=== PATIENT | female | born 1940 | race Caucasian/White ===

== ENCOUNTER → 2016-09-21 | Outpatient (CLI) | payer OTHER ==
--- NOTE | 2016-09-21 11:51 | DX ---
PA and Lateral Chest September 21, 2016 Indication: Crackles left base on clinical exam. Cough for two months. Comparison: Portable chest dated July 03, 2016, two-view chest dated September 01, 2015, and CT ch est dated October 06, 2015. Findings: No acute superimposed edema, airspace consolidation, or effusion. Diffuse peribronchial thi ckening and subpleural intralobular septal thickening in the lower lung zones, worse left than right, have not significantly changed since prior exams. Heart size remains within normal limits. Kyphosis, unchanged. Impression: 1. No acute process. Specifically, no pneumonia or failure. 2. Chronic airways disease and minimal subpleural interstitial lung disease, worse at the left base.
== END ==
LOC: FIMAGING 10:59
PROVIDERS: ATTEND Internal Medicine
DX: J44.9 Chronic obstructive pulmonary disease, unspecified (principal); J84.9 Interstitial pulmonary disease, unspecified

== ENCOUNTER → 2016-10-04 | Outpatient (CLI) | payer OTHER | LOC: BHFA 09:15 | PROVIDERS: ATTEND Internal Medicine Cardiovascular Disease | DX: R06.00 Dyspnea, unspecified (principal) ==

== ENCOUNTER → 2017-01-24 | Outpatient (CLI) | payer OTHER | LOC: FIMAGING 09:58 | PROVIDERS: ATTEND Internal Medicine | DX: Z12.31 Encounter for screening mammogram for malignant neoplasm of breast (principal); Z85.3 Personal history of malignant neoplasm of breast | CPT/HCPCS: G0202 ==

== ENCOUNTER 2017-11-12 10:08 | Inpatient (IN) | payer OTHER ==
--- NOTE | 2017-11-12 11:35 | EDPHY ---
H & P Stated Complaint: Increased left wrist/hand pain, since 11/09/17, seen at - Personal History Current Tetanus Diphtheria and Acellular Pertussis (TDAP): Yes - Medical/Surgical History Hx Asthma: Yes Hx Chronic Respiratory Disease: No Hx Diabetes: Yes Hx Cardiac Disease: Yes Hx Renal Disease: No Hx Cirrhosis: No Hx Alcoholism: No Hx HIV/AIDS: No Hx Splenectomy or Spleen Trauma: No Other PMH: leaky valve, hypothyrodism, pre diabetic, high cholesterol, severe asthma. COPD. - Social History Smoking Status: Never smoked Time Seen by Provider: 11/12/17 11:22 HPI/ROS: CHIEF COMPLAINT: Left wrist pain HISTORY OF PRESENT ILLNESS: 77-year-old left hand dominant female arrives via private vehicle complaining of 3 days of progressive left wrist pain, erythema. Denies history of trauma. Awoke 3 days ago with mild left wrist pain which became progressively worse. She was seen at an urgent care had negative x-rays told this may be secondary to acute gouty arthritis and discharged with a wrist splint. No history of gouty arthritis. She notes that the area has become progressively more painful, more with images, she has decreased range of motion secondary to pain. She also notes subjective fever and flu-like symptoms. She denies: Lymphangitic streaking, nausea or vomiting. She return from a trip to [place] 2 weeks ago. PRIMARY CARE PROVIDER: Dr. Alana eng REVIEW OF SYSTEMS: A ten point review of systems was performed and is negative with the exception of the items mentioned in the HPI PAST MEDICAL & SURGICAL HISTORY: Pulmonary hypertension, COPD, 6 L home oxygen , hypothyroid, pre diabetes, hyperlipidemia SOCIAL HISTORY:Nonsmoker never smoked PHYSICAL EXAM (Prior to examination, patient consented to physical exam, hands were washed and my usual and customary physical exam procedures followed) 1) GENERAL: Well-developed, well-nourished, alert and oriented. Appears to be in no acute distress. 2) HEAD: Normocephalic, atraumatic 3) HEENT: Pupils equal, round, reactive to light bilaterally. Sclera anicteric. 4) NECK: Full range of motion, no meningeal signs. 5) LUNGS: Clear auscultation bilaterally, no wheezes, no rhonchi, no retractions. 6) HEART: Regular rate and rhythm, no murmur, no heave, no gallop. 7) ABDOMEN: No guarding, no rebound, no focal tenderness, negative McBurney's, 8) MUSCULOSKELETAL: Left upper extremity: Edema, erythema, induration, tender to palpation left dorsal wrist. Significant pain with passive range of motion. Unable to assess radial ulnar median nerve function distally secondary to pain. No lymphangitic streaking. No axillary adenopathy. 9) BACK: No CVA tenderness, no midline vertebral tenderness, no fluctuance, no step-off, no obvious trauma, no visual or palpable abnormality. 10) SKIN: No rash, no petechiae. 11) Psychiatric: Patient is oriented X 3, there is no agitation. DIFFERENTIAL DIAGNOSIS: In no particular order including but not limited to septic arthritis, acute gouty arthritis, osteoarthritis, cellulitis (Jose Daniel,Natalya Dangelo) Constitutional: Initial Vital Signs Temperature (C) 36.9 C 11/12/17 10:14 Heart Rate 99 11/12/17 10:14 Respiratory Rate 16 11/12/17 10:14 Blood Pressure 117/63 11/12/17 10:14 O2 Sat (%) 95 11/12/17 10:14 O2 Delivery Mode Nasal Cannula O2 (L/minute) 5 Allergies/Adverse Reactions: No Known Allergies Allergy (Unverified 07/03/16 22:21) Home Medications: Medication Instructions Recorded Levothyroxine [Synthroid 112 mcg 112 mcg PO DAILY06 07/03/16 (*)] Advair 230/21 1 puffs IH DAILY 11/12/17 Alendronate Sodium [Fosamax 70 MG 70 mg PO FR@0700 11/12/17 (*)] Aspirin [Aspirin 81mg (*)] 81 mg PO HS 11/12/17 Fluticasone Nasal [Flonase Nasal 1 sprays NASAL QID PRN 11/12/17 Marlin (RX)] Fluticasone/Vilanterol [Breo 1 each IH DAILY 11/12/17 Ellipta 100-25 Mcg INH] Herbals/Supplements -Info Only 1 ea PO DAILY 11/12/17 Selexipag [Uptravi] 800 mcg PO BID 11/12/17 Selexipag [Uptravi] 800 mcg PO BID 11/12/17 Simvastatin [Zocor] 40 mg PO DAILY18 11/12/17 Tiotropium [place] [Spiriva 1 puffs IH DAILY 11/12/17 Respimat] metFORMIN HCL [Glucophage 500 mg 500 mg PO BIDMEAL 11/12/17 (*)] Medical Decision Making - Diagnostics Imaging Results: Images reviewed by myself (Natalya Sky) ED Course/Re-evaluation: 11:35 a.m.: Care of patient under supervision of secondary supervising physician Dr Shannon also evaluated the patient. Patient does not meet sepsis screening criteria. Of concern in this patient at this time is possibility of septic arthritis with overlying erythema and induration. Discussed possibility of crystal induced arthritis. Given the overlying erythema induration neither I or Dr Shnanon think that diagnostic arthrocentesis is appropriate at this time. 1:40 p.m.: Re-evaluation. Recommended admission for further evaluation, notably she notes it progressive worsening of symptoms and decreased range of motion concern over possible septic arthritis of the wrist. Patient is agreeable with admission. 1:53 p.m.: Consultation with hospitalist Fabiana, admit to Dr. Rodríguez 2:08 p.m.: Consultation with Dr. Tonio Rosa who will consult for hand surgery, he recommends MRI which will be ordered. (Natalya Sky) I have evaluated and participated in the management of this patient. My co- signature indicates that I have reviewed this chart and that I agree with the findings and the plan of care as documented. My personal history and physical findings include: 77-year-old female with history of hypertension. She presents with left wrist pain. On examination she has swelling and tenderness over the dorsum of her left wrist with warmth and erythema. There is significant tenderness at the base of her left thumb. She is able to flex and extend all digits on the left. She is also able to flex, extend, matti, and invert her wrist, lb at with pain. Sensation is intact to light touch over her left upper extremity. 2+ radial pulse on the left. Lungs are clear and heart is regular rate and rhythm. She does not appear ill or toxic in general but I am concerned about a septic joint. Other diagnostic possibilities include gout , pseudogout, necrotizing fasciitis, and cellulitis. She has had recent travel in [place] but denies any bites or stings and I do not see any evidence of such. Hand surgery has been consulted and an MRI is being obtained. Joint aspiration will be performed by the hand surgeon. Vancomycin was given in the emergency department. (Dionne Shannon) - Data Points Laboratory Results: Laboratory Results 11/12/17 11:15 11/13/17 00:45 Microbiology Results: MICROBIOLOGY 11/12/17 19:33 Wrist - Aspirate Gram Stain - Final 11/12/17 19:33 Wrist - Aspirate Anaerobic Culture - Preliminary 11/12/17 12:40 Blood Blood Culture - Preliminary 11/12/17 11:15 Blood Blood Culture - Preliminary Medications Given: Acetaminophen (Tylenol) 650 mg PO Q4HRS PRN PRN Reason: Pain, Mild/Fever, Can Take PO Stop: 05/11/18 15:53 Last Admin: 11/14/17 08:49 Dose: 650 mg Aspirin (Aspirin) 81 mg PO HS NIDA Stop: 05/12/18 20:59 Last Admin: 11/13/17 21:15 Dose: 81 mg Levothyroxine Sodium (Synthroid) 112 mcg PO DAILY06 NIDA Stop: 05/12/18 05:59 Last Admin: 11/14/17 05:02 Dose: 112 mcg Miscellaneous Medication (Fluticasone/Vilanterol [Breo Ellipta 100-25 Mcg Inh]) 1 each IH DAILY NIDA Stop: 05/12/18 08:59 Last Admin: 11/14/17 09:36 Dose: 1 inh Miscellaneous Medication (Selexipag [Uptravi]) 800 mcg PO BID NIDA Stop: 05/11/18 22:44 Last Admin: 11/14/17 08:50 Dose: 800 mcg Miscellaneous Medication (Selexipag [Uptravi]) 800 mcg PO BID NIDA Stop: 05/11/18 22:44 Last Admin: 11/14/17 08:51 Dose: 800 mcg Miscellaneous Medication (Tiotropium [place] [Spiriva Respimat]) 1 puffs IH DAILY NIDA Stop: 05/12/18 08:59 Last Admin: 11/14/17 09:36 Dose: 1 inh Miscellaneous Medication (Simvastatin [Zocor]) 40 mg PO DAILY18 NIDA Stop: 05/11/18 22:44 Last Admin: 11/13/17 18:30 Dose: 40 mg Discontinued Medications Colchicine (Colchicine) 1.2 mg PO ONCE ONE Stop: 11/13/17 00:31 Last Admin: 11/13/17 00:44 Dose: 1.2 mg Colchicine (Colchicine) 0.6 mg PO DAILY NIDA Stop: 05/12/18 01:59 Last Admin: 11/13/17 10:15 Dose: 0.6 mg Fentanyl (Sublimaze) 50 mcg IVP EDNOW ONE Stop: 11/12/17 11:50 Last Admin: 11/12/17 11:59 Dose: 50 mcg Vancomycin/Sodium Chloride (Vancomycin 1 Gm (Premix)) 250 mls @ 250 mls/hr IV EDNOW ONE PRN Reason: Protocol Stop: 11/12/17 16:59 Last Admin: 11/12/17 15:45 Dose: 250 mls Vancomycin/Sodium Chloride (Vancomycin 1 Gm (Premix)) 250 mls @ 250 mls/hr IV Q12H NIDA Stop: 12/13/17 03:59 Last Admin: 11/14/17 05:02 Dose: 250 mls Ketorolac Tromethamine (Toradol) 15 mg IVP EDNOW ONE Stop: 11/12/17 13:48 Last Admin: 11/12/17 14:04 Dose: 15 mg Lidocaine HCl (Xylocaine-Mpf 2% Vial) 3 ml ID ONCE ONE Stop: 11/12/17 18:31 Last Admin: 11/12/17 18:52 Dose: 3 ml Potassium Chloride (Klor-Con) 20 meq PO ONCE ONE Stop: 11/12/17 16:45 Last Admin: 11/12/17 17:16 Dose: 20 meq Departure - Departure Disposition: [facility] Clinical Impression: Left wrist cellulitis, Possible septic arthritis left wrist Condition: Fair
[2017-11-12 11:48] LABS: PLATELET COUNT 389 10^3/uL (150-400)
[2017-11-12] MEDS ORDERED: fentaNYL 100 MCG/2 ML INJ IVP ONE (11:49)
[2017-11-12] MEDS ORDERED: VANCOMYCIN HCL/NORMAL SALINE 250 ML IV ONE ×2 (13:45→16:00)
[2017-11-12] MEDS ORDERED: KETOROLAC 15 MG/1 ML SDV IVP ONE (13:47)
[2017-11-12] MEDS ORDERED: ONDANSETRON 4 MG/2 ML VIAL IVP PRN (15:54)
[2017-11-12] MEDS ORDERED: HYDROmorphone HCL/NS 0.5 MG/ML SYR IVP PRN (15:54)
[2017-11-12] MEDS ORDERED: HYDROCODONE/APAP 5/325 TAB PO PRN (15:54)
[2017-11-12] MEDS ORDERED: ALBUTEROL 3 ML DEYVIAL IH PRN (15:54)
[2017-11-12] MEDS ORDERED: ZOLPIDEM TARTRATE 5 MG TAB PO PRN (15:54)
[2017-11-12] MEDS ORDERED: ONDANSETRON DISINTEGRATING 4 MG TAB PO PRN (15:54)
[2017-11-12] MEDS ORDERED: NS W/ 20 KCl/L 1,000 ML IV SCH (16:00)
--- NOTE | 2017-11-12 16:39 | GHP ---
[f rep st] HISTORY AND PHYSICAL DATE OF ADMISSION: 11/12/2017 CHIEF COMPLAINT: Left wrist swelling and tenderness and pain. HISTORY OF PRESENT ILLNESS: This is a 77-year-old female, who notes a 2-3 day history of increasing pain, swelling and tenderness of her left wrist. It is especially tender with extension of her finge rs and movement of her wrist. She has applied ice to it and cannot relieve the pain. The symptoms a nd the pain came on suddenly in the last 2-3 days. It has been increasingly swollen and tender. It is not accompanied by having a fever and she denies any trauma to the wrist recently. She did recent ly travel for 6 weeks in [place] visiting [place], [place] and 1 other country. She returned from the trip healthy and well. She has been back in the country for approximately 2 weeks and had this sudden onset of this pain. Of note, the patient is currently under treatment for pulmonary hypertension through [facility] and has been placed on a new medication for the last 2-1/2 months. The dose of the medicati on has been up titrated and she is now at the maximum dose. She notes that the medication causes a f eeling of aching all over, and myalgia when she takes it. Her relief for these symptoms is to lie in a warm tub of water with jets and then she reports she is able to go to sleep. She has carried a di agnosis for many years of chronic obstructive pulmonary disease and was cared for through [facility]. Her last visit in 2016 indicates she has normal pulmonary function tests with a decre ased DLCO. Pulmonary hypertension was noted on echo at that time. She also has sleep apnea syndrome , uses a CPAP mask and has chronic hypoxic respiratory failure requiring 6 L of oxygen at maintenance levels. She uses oxygen 24/7 and additionally, she has a chronic cough which has not changed in its character in the last 2-3 months. The cough is characterized by white productive sputum in the morn ing and in the evening. Through [facility], she is reported to have environmental allergies. N o medical allergies and a problem of chronic bronchitis although she has not been treated with an ant ibiotic and in particular not been treated with Levaquin in the last several months. PAST MEDICAL HISTORY: 1. Borderline diabetic for which she takes metformin. She does not know her last hemoglobin A1c. 2. Pulmonary hypertension as noted above in the HPI. 3. Normal side reactions to her new pulmonary medicine causing myalgias and arthralgia. She denies currently asthma although she previously carried a diagnosis of asthma. She reports that [employer] wish told her she does not have asthma. I assume from this that her pulmonary functions there indica tessa she did not have a positive bronchodilator response. She denies a prior history of coronary dise ase, renal disease. PAST SURGICAL HISTORY: She had her nasal septum repaired, tonsillectomy and bone spurs removed from 1 of her heels. ALLERGIES: No known allergies. MEDICATIONS: Noted in the EMR. These include Flonase nasal spray, aspirin 81 mg a day. Fosamax, me tformin 500 mg twice daily, Zocor, Synthroid 120, 12 mcg, Breo Ellipta pulmonary inhaler 100, 25 mcg and albuterol. Other medications, Uptravi, and I do not know the dosages at this time or frequency o f dosing. The EMR medications will be reconciled when available. FAMILY HISTORY: Positive for an arrhythmia, diabetes mellitus type 2, hypertension, throat cancer. SOCIAL HISTORY: She has 3 sisters. She has been single all her life and she has no children. 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 Tobacco: She has never s moked and alcohol she very rarely consumes alcohol. PHYSICAL EXAM: GENERAL: Is a pleasant, alert female, who appears uncomfortable but in no distress. VITAL SIGNS: She is afebrile. Her oxygen saturation is 94% on 5-6 L. Her blood pressure is very sl ightly elevated 1 count but otherwise normal. HEENT: Normal. Throat, tongue and buccal mucosa are without lesions. NECK: Supple without signs of meningismus. LUNGS: Diminished breath sounds overa ll with a few scattered crackles in the bases but no or expiratory or inspiratory wheezing. HEART: Singular S1, S2 without a murmur or gallop. JVP is not elevated. ABDOMEN: Normoactive narciso wel sounds. No masses, tenderness, organomegaly. EXTREMITIES: Show significant swelling, warmth and redness over the dorsal aspect of the left wrist extending to the mid region of the hand on the metac arpals. Any movement of the fingers or wrist causes very significant pain for the lady. X-ray revea ls degenerative changes at the 1st MCP joint but otherwise shows no fracture or bony erosions. An MR I is pending. LABORATORY DATA: Shows a normal white count, with a low hemoglobin at 11 but normal red cell indices . Her potassium is slightly low at 3.3, but otherwise her electrolyte panel was normal with a normal calcium and normal uric acid. ASSESSMENT: 1. Acute arthritis, possible septic arthritis although she has no constitutional symptoms to corrobo rate this and also her white count is normal. She denies any recent constitutional symptoms although it is difficult to separate those symptoms from her chronic respiratory problem with chronic pulmona ry shortness of breath and a chronic productive cough. The cough has not changed in character and th us I do not think a possible lung infection is involved in this matter. It seems possible that Uptri va, the medication she is taking for pulmonary hypertension, may, in fact, cause problems of joint sw elling. It certainly has a side effect of causing myalgia and arthralgia but it is not listed as cau sing problems of genuine inflammatory arthritis. Dr. Rosa has been consulted and will review the ca se and see the patient following the MRI. I do not detect fluctuance, yet it may be possible with e MRI to detect an area for possible tap and culture. In the meantime, the patient has had 2 blood c ultures taken. 2. Chronic pulmonary hypertension. Will continue her medication and consult with Pulmonary rosie g issues of management of her chronic pulmonary hypertension and the use of this medication. We will continue her usual home medications along with her needed oxygen. 3. Her code status is full. 4. Deep venous thrombosis prophylaxis will be with early ambulation. She has no history of a deep v enous thrombosis or clotting disorder. Should she not be able to ambulate adequately within 24 hours then suggest Lovenox. The patient will be admitted to observation status. Time of the admission required 60 minutes. /[id number]/MODL
[2017-11-12] MEDS ORDERED: POTASSIUM CL 20 MEQ TAB PO ONE (16:44)
[2017-11-12] MEDS ORDERED: LIDOCAINE 2% 5 ML SDV ID ONE (18:30)
--- NOTE | 2017-11-12 19:59 | GCON ---
[f rep st] CONSULTATION ORTHOPEDIC CONSULTATION DATE OF CONSULTATION: 11/12/2017 DIAGNOSIS: Left septic wrist (suspected). HISTORY OF PRESENT ILLNESS: Patient is a 77-year-old woman who has had an approximately 3-day histor y of increasing pain in the left wrist. She has had difficulty moving the wrist and fingers. She pope s had more swelling over the last 24 hours. She has tried applying ice, without success. She had re cently traveled 6 weeks in [place], visiting multiple countries. She indicates that she returned from the trip without any infections. Medical problems include pulmonary hypertension, for which she has been on new medication for the last 2-1/2 months. She indicates the medicine that she takes for the pulmonary hypertension does cause generalized body aches and myalgias. This may have confused her i n regard to the wrist discomfort that she has been having. She indicates she has not had any signifi cant shortness of breath or other areas that are consistent with an infectious process. PAST MEDICAL HISTORY: Borderline diabetes, currently taking metformin. Pulmonary hypertension as st ated. PREVIOUS SURGICAL HISTORY: Nasal septal repair, tonsillectomy, bone spurs removed from her heels. ALLERGIES: No known allergies. PHYSICAL EXAMINATION: GENERAL: Patient is alert and oriented, cooperative with exam. CHEST: Clear to auscultation. ABDOMEN: Nontender. LEFT UPPER EXTREMITY: Reveals normal sensation. Is able to flex, extend, abduct, and adduct the fingers. Moderate swelling over the dorsum of the wrist with a ssociated erythema. She is very tender over the dorsal aspect of the wrist at the level of the scaph olunate interval. MRI is reviewed, which shows fluid within the left wrist, consistent with synovitis, possibly purulen t. No obvious significant erosive findings seen on MRI or plain films. ASSESSMENT: Left wrist swelling, likely secondary to purulent synovitis. TREATMENT: Left wrist was prepped. A needle was placed in the joint, and indeed purulent fluid was obtained. This was sent to the lab for aerobic and anaerobic cultures, cell counts, Gram stain, and crystallin studies. Because the patient had been n.p.o. most of the day, but just recently was allow ed to eat, we are going to await lab results and anticipate surgical debridement with irrigation and drainage early tomorrow morning. /[id number]/MODL
[2017-11-12] MEDS ORDERED: FLUTICASONE NASAL 120 SPRAYS/16 GM MDI EACHNARE PRN (21:37)
[2017-11-12] MEDS: SELEXIPAG 800 MCG PO SCH (22:41)
[2017-11-12] MEDS: Simvastatin [Zocor] 40 MG PO SCH (22:41)
[2017-11-12] MEDS: SELEXIPAG 200 MCG PO SCH (22:41)
[2017-11-13] MEDS ORDERED: COLCHICINE 0.6 MG CAP/TAB PO ONE (00:30)
[2017-11-13] MEDS: COLCHICINE 0.6 MG CAP/TAB PO SCH ×2 (01:49→10:15)
[2017-11-13] MEDS: LEVOTHYROXINE 112 MCG TAB PO SCH (04:36)
[2017-11-13] MEDS: VANCOMYCIN HCL/NORMAL SALINE 250 ML IV SCH ×2 (04:36→16:30)
[2017-11-13] MEDS: Fluticasone/Vilanterol [Breo Ellipta 100-25 Mcg Inh] IH SCH (08:11)
[2017-11-13] MEDS: Tiotropium Bromide [Spiriva Respimat] IH SCH (08:12)
[2017-11-13] MEDS: ACETAMINOPHEN 325 MG TAB PO PRN ×3 (10:16→19:04)
[2017-11-13] MEDS: SELEXIPAG 800 MCG PO SCH ×2 (10:17→21:15)
[2017-11-13] MEDS: SELEXIPAG 200 MCG PO SCH ×2 (10:18→21:15)
--- NOTE | 2017-11-13 11:22 | ASMTCMCOM ---
CM Note CM Note Notes: Patient admitted for L wrist pain. The wrist was aspirated and fluid has been sent to the lab. Per ortho note, she is to have I&D today. Patient is normally independent. No acute care therapies have been ordered, and I do not anticipate any discharge needs. If any arise, Case Management will assist. Date Signed: 11/13/2017 11:21 AM Electronically Signed By:Milly Mcclure RN
--- NOTE | 2017-11-13 12:34 | HOSPPROG ---
Hospitalist Progress Note Assessment/Plan: # acute left wrist arthritis- MRI it left hand(personally reviewed and interpreted) shows fluid collection and dorsal edema consistent with cellulitis Synovial aspirate with calcium pyrophosphate crystals- culture NGTD - continue colchicine - Dr. Rosa orthopedics following - follow cultures # left wrist cellulitis- continue empiric IV vancomycin # diabetes- blood sugars well controlled 76-96 - hold metformin - sliding scale insulin if needed # abnormal urinalysis- no distinct complaints at presentation- urine culture pending # chronic hypoxic respiratory failure-home requirement 6 L- 96% on 5 L -continue home meds # prophylaxis Lovenox # diet diabetic # disposition greater than 2 midnights as the patient requires IV antibiotics and monitoring for left wrist arthritis and cellulitis I have discussed the case with the RN-we will continue to hold metformin during this hospital stay Subjective: Pain of left wrist improved Objective: Vital Signs Temp Pulse Resp BP Pulse Ox 36.9 C 75 16 115/67 96 11/13/17 11:34 11/13/17 11:34 11/13/17 11:34 11/13/17 11:34 11/13/17 11:34 Microbiology 11/12/17 19:33 Gram Stain - Final Wrist - Aspirate Laboratory Results 11/13/17 00:45 11/12/17 11/13/17 11/14/17 05:59 05:59 05:59 Intake Total 1800 Output Total 600 Balance 1200 - Physical Exam Constitutional: appears nourished Eyes: anicteric sclera Ears, Nose, Mouth, Throat: moist mucous membranes Cardiovascular: regular rate and rhythym Respiratory: no respiratory distress, No expiratory wheeze Gastrointestinal: normoactive bowel sounds Genitourinary: no bladder fullness Skin: warm Musculoskeletal: other (Left wrist and hand wrapped), No asymmetric calves Neurologic: AAOx3 Psychiatric: interacting appropriately Lymph, Heme, Immunologic: no cervical LAD ICD10 Worksheet Patient Problems: Problems Problem Status Onset Arthritis of wrist, left Acute - ICD10 Problem Qualifiers (1) Arthritis of wrist, left
--- NOTE | 2017-11-13 16:58 | PDMN ---
Medical Necessity Medical necessity: Change to IP, as of 11/13/17, per MD; los >2 mn for ongoing management of L wrist arthritis & cellulitis, as well as abnormal urinalysis; admit for further monitoring/workup, IV abx & possible surgical intervention; hx diabetes, chronic hypoxic respiratory failure & pulmonary htn; per progress note & order 11/13/17
[2017-11-13] MEDS ORDERED: Simvastatin [Zocor] 40 MG PO SCH (18:00)
[2017-11-13] MEDS: Simvastatin [Zocor] 40 MG PO SCH (18:30)
--- NOTE | 2017-11-13 18:33 | SOAPPROG ---
SOAP Progress Note Assessment/Plan: Assessment: purulent synovitis left wrist. Cultures are negative at this time. Pseudogout crystals on microscopy Plan: recheck cultures. Continue vancomycin. Treat crystalline arthropathy with colchicine and possibly convert to indomethacin. 11/13/17 18:29 Subjective: Patient thinks pain is a little better Objective: Vital Signs Temp Pulse Resp BP Pulse Ox 37.1 C 78 16 109/63 95 11/13/17 16:00 11/13/17 16:00 11/13/17 16:00 11/13/17 16:00 11/13/17 16:00 Erythema still present but better. Still warm. less painful rom. Cultures negative at 18 hrs., gram stain negative. ICD10 Worksheet Patient Problems: Problems Problem Status Onset Arthritis of wrist, left Acute
[2017-11-13] MEDS: ASPIRIN 81 MG CHEWABLE TAB PO SCH (21:15)
[2017-11-14] MEDS: LEVOTHYROXINE 112 MCG TAB PO SCH (05:02)
[2017-11-14] MEDS: VANCOMYCIN HCL/NORMAL SALINE 250 ML IV SCH ×2 (05:02→18:00)
--- NOTE | 2017-11-14 08:08 | SOAPPROG ---
SOAP Progress Note Assessment/Plan: Assessment: purulent synovitis left wrist. Cultures are negative at this time (36 hs). Pseudogout crystals on microscopy. Plan: recheck cultures. Continue vancomycin. Treat crystalline arthropathy. will change colchicine to indomethacin. 11/13/17 18:29 11/14/17 08:05 Subjective: Less pain Objective: Vital Signs Temp Pulse Resp BP Pulse Ox 36.9 C 79 16 98/55 L 94 11/14/17 00:00 11/14/17 00:00 11/14/17 00:00 11/14/17 00:00 11/14/17 00:00 Laboratory Results 11/14/17 04:10 11/13/17 11/14/17 11/15/17 05:59 05:59 05:59 Intake Total 2069 275 Balance 2069 275 Wrist aspirate shows no growth this morning. Swelling improved. ICD10 Worksheet Patient Problems: Problems Problem Status Onset Arthritis of wrist, left Acute
[2017-11-14] MEDS: ACETAMINOPHEN 325 MG TAB PO PRN ×2 (08:49→14:50)
[2017-11-14] MEDS: SELEXIPAG 800 MCG PO SCH ×2 (08:50→20:08)
[2017-11-14] MEDS: SELEXIPAG 200 MCG PO SCH ×2 (08:51→20:08)
[2017-11-14] MEDS: Tiotropium Bromide [Spiriva Respimat] IH SCH (09:36)
[2017-11-14] MEDS: Fluticasone/Vilanterol [Breo Ellipta 100-25 Mcg Inh] IH SCH (09:36)
[2017-11-14] MEDS: INDOMETHACIN 25 MG CAP PO SCH ×2 (14:50→18:05)
--- NOTE | 2017-11-14 16:40 | HOSPPROG ---
Hospitalist Progress Note Assessment/Plan: acute left wrist arthritis- MRI it left hand(personally reviewed and interpreted ) shows fluid collection and dorsal edema consistent with cellulitis Synovial aspirate with calcium pyrophosphate crystals- culture NGTD - continue colchicine - Dr. Lai orthopedics following - follow cultures left wrist cellulitis- continue empiric IV vancomycin diabetes- blood sugars well controlled 76-96 - hold metformin - sliding scale insulin if needed abnormal urinalysis- no distinct complaints at presentation- urine culture pending chronic hypoxic respiratory failure-home requirement 6 L- 96% on 5 L -continue home meds prophylaxis Lovenox diet diabetic disposition greater than 2 midnights as the patient requires IV antibiotics and monitoring for left wrist arthritis and cellulitis Subjective: case d/w dr lai Objective: Vital Signs Temp Pulse Resp BP Pulse Ox 36.9 C 71 16 136/82 H 100 11/14/17 15:27 11/14/17 15:27 11/14/17 15:27 11/14/17 15:27 11/14/17 15:27 Laboratory Results 11/14/17 04:10 11/13/17 11/14/17 11/15/17 05:59 05:59 05:59 Intake Total 2068 275 Balance 2068 275 - Physical Exam Constitutional: no apparent distress, appears nourished Eyes: PERRL, anicteric sclera Ears, Nose, Mouth, Throat: moist mucous membranes, hearing normal Cardiovascular: regular rate and rhythym, no murmur, rub, or gallop Respiratory: no respiratory distress, no rales or rhonchi Gastrointestinal: normoactive bowel sounds, soft, non-tender abdomen Genitourinary: no bladder fullness, No wilson in urethra Skin: warm, other (wriist edematous, not red or hot. no joint effusion) Musculoskeletal: full muscle strength, no muscle tenderness Neurologic: AAOx3 ICD10 Worksheet Patient Problems: Problems Problem Status Onset Arthritis of wrist, left Acute
[2017-11-14] MEDS: Simvastatin [Zocor] 40 MG PO SCH (18:04)
[2017-11-14] MEDS: ASPIRIN 81 MG CHEWABLE TAB PO SCH (20:08)
[2017-11-15] MEDS: VANCOMYCIN HCL/NORMAL SALINE 250 ML IV SCH ×2 (05:29→17:50)
[2017-11-15] MEDS: LEVOTHYROXINE 112 MCG TAB PO SCH (05:29)
[2017-11-15] MEDS: Fluticasone/Vilanterol [Breo Ellipta 100-25 Mcg Inh] IH SCH (09:19)
[2017-11-15] MEDS: Tiotropium Bromide [Spiriva Respimat] IH SCH (09:20)
--- NOTE | 2017-11-15 09:37 | SOAPPROG ---
SOAP Progress Note Assessment/Plan: Assessment: Left Wrist purulent synovitis Cultures are negative at this time. Pseudogout crystals on microscopy. Plan: Continue conservative treatment Continue IV antibiotics vancomycin Treat crystalline arthropathy: indomethacin. Ice/Elevation Pain medicine as needed Ortho to follow Subjective: Patient states her left wrist is feeling better. Less pain today however she is still swollen in the left wrist and hand. Objective: Vital Signs Temp Pulse Resp BP Pulse Ox 36.8 C 74 16 116/68 97 11/15/17 07:18 11/15/17 09:20 11/15/17 07:18 11/15/17 07:18 11/15/17 09:20 Laboratory Results 11/14/17 04:10 11/14/17 11/15/17 11/16/17 05:59 05:59 05:59 Intake Total 2068 1825 Balance 2068 1825 Physical exam of the left wrist: swelling still present but it is decreased. Decreased pain with ROM. Normal sensation to light touch in the LUE. Distal pulse present in the LUE. ICD10 Worksheet Patient Problems: Problems Problem Status Onset Arthritis of wrist, left Acute
[2017-11-15] MEDS: SELEXIPAG 200 MCG PO SCH (09:47)
[2017-11-15] MEDS: SELEXIPAG 800 MCG PO SCH (09:48)
[2017-11-15] MEDS: INDOMETHACIN 25 MG CAP PO SCH ×3 (09:48→17:50)
[2017-11-15 15:29] VITALS: BP 128/73
--- NOTE | 2017-11-15 17:16 | HOSPPROG ---
Hospitalist Progress Note Assessment/Plan: acute left wrist arthritis- MRI it left hand(personally reviewed and interpreted ) shows fluid collection and dorsal edema consistent with cellulitis Synovial aspirate with calcium pyrophosphate crystals- culture NGTD - continue colchicine - Dr. Rosa orthopedics following - follow cultures left wrist cellulitis- continue empiric IV vancomycin diabetes- blood sugars well controlled 76-96 - hold metformin - sliding scale insulin if needed abnormal urinalysis- no distinct complaints at presentation- urine culture pending chronic hypoxic respiratory failure-home requirement 6 L- 96% on 5 L -continue home meds prophylaxis Lovenox diet diabetic disposition: home today outpt ot > 30 minutes on dc Subjective: feels much better. able to flex and extend wrist Objective: Vital Signs Temp Pulse Resp BP Pulse Ox 37.0 C 70 16 128/73 H 98 11/15/17 15:26 11/15/17 15:26 11/15/17 15:26 11/15/17 15:26 11/15/17 15:26 Microbiology 11/13/17 16:41 Urine Culture - Final Urine,Clean Catch Laboratory Results 11/14/17 04:10 11/14/17 11/15/17 11/16/17 05:59 05:59 05:59 Intake Total 2068 1824 Balance 2068 1824 - Physical Exam Constitutional: no apparent distress, appears nourished Eyes: PERRL, anicteric sclera Ears, Nose, Mouth, Throat: moist mucous membranes, hearing normal Cardiovascular: regular rate and rhythym, no murmur, rub, or gallop Respiratory: no respiratory distress, no rales or rhonchi Gastrointestinal: normoactive bowel sounds, soft, non-tender abdomen Genitourinary: no bladder fullness, No wilson in urethra Skin: warm, normal color Musculoskeletal: full muscle strength Neurologic: AAOx3 ICD10 Worksheet Patient Problems: Problems Problem Status Onset Arthritis of wrist, left Acute
--- NOTE | 2017-11-15 17:34 | GDS ---
[f rep st] DISCHARGE SUMMARY DISCHARGE DIAGNOSES: 1. Possible pseudogout of wrist. 2. Wrist cellulitis. CONSULT THIS ADMISSION: Orthopedic Surgery, who followed her, felt surgery was not warranted. She d id have an arthrocentesis showing 30,000 white cells with a few intracellular calcium pyrophosphate c rystals. This leukocytosis in her synovial fluid is not specific for infection. The patient was followed. She was placed on vancomycin with improvement. On the first day of discharge, the patient was able to flex and extend her wrist, which is a new find ing. She was afebrile and feeling better. The patient has pulmonary hypertension and COPD, and is o n relatively high levels of oxygen and this is stable. For further details, please see the electronic health record. /[id number]/MODL
[2017-11-15] MEDS: Simvastatin [Zocor] 40 MG PO SCH (17:54)
[2017-11-16] MEDS ORDERED: ALENDRONATE SODIUM 70 MG TAB PO SCH (07:00)
[2017-11-17] MEDS ORDERED: INDOMETHACIN 25 MG CAP PO SCH (12:00)
== END 2017-11-15 19:07 | disposition home or self-care (01) | DRG 603 ==
LOC: F3N 15:26 → OBSVTOIN 11-13 14:21
PROVIDERS: ADMIT Internal Medicine Pulmonary Disease; ATTEND Internal Medicine
PROC: 0R9P3ZX Drainage of Left Wrist Joint, Percutaneous Approach, Diagnostic (ICD-10-PCS; principal; 2017-11-12)
DX: L03.114 Cellulitis of left upper limb (principal); M11.832 Other specified crystal arthropathies, left wrist; J44.9 Chronic obstructive pulmonary disease, unspecified; J96.11 Chronic respiratory failure with hypoxia; I27.20 Pulmonary hypertension, unspecified; R73.03 Prediabetes; E03.9 Hypothyroidism, unspecified; E78.00 Pure hypercholesterolemia, unspecified; R82.90 Unspecified abnormal findings in urine; Z99.81 Dependence on supplemental oxygen
CPT/HCPCS: 84480-90; 96374; G0378; J1885; J3010; J3370

== ENCOUNTER 2017-12-13 09:17 | Inpatient (IN) | payer OTHER ==
[2017-12-13 10:04] LABS: PLATELET COUNT 273 10^3/uL (150-400)
[2017-12-13] MEDS ORDERED: IOPAMIDOL (ISOVUE 370) 100 ML BTL IV ONE (10:45)
--- NOTE | 2017-12-13 10:49 | EDPHY ---
H & P Stated Complaint: shortness of breath Time Seen by Provider: 12/13/17 09:48 HPI/ROS: CHIEF COMPLAINT: Shortness of breath HISTORY OF PRESENT ILLNESS: 77-year-old female with oxygen-dependent pulmonary hypertension presents with shortness of breath. She usually uses 6 L by nasal cannula around the clock. She is seen at [facility] for pulmonary hypertension. She was placed on metoprolol 4 days ago because of an irregular heartbeat. Since then, she has felt increasing shortness of breath, even while using her oxygen. Her oxygen level is in the mid 90s while she is at rest, but drops to the 80s with minimal exertion. Associated with increased leg swelling over the past few days. She was at physical therapy this morning and her blood pressure was low, so she was sent to the emergency department for further evaluation. She has a chronic cough, without recent change. REVIEW OF SYSTEMS: complete 10 point ROS negative except at noted in the HPI - Personal History Current Tetanus/Diphtheria Vaccine: Yes Current Tetanus Diphtheria and Acellular Pertussis (TDAP): Yes - Medical/Surgical History Hx Asthma: Yes Hx Chronic Respiratory Disease: Yes Hx Diabetes: Yes Hx Cardiac Disease: Yes Hx Renal Disease: No Hx Cirrhosis: No Hx Alcoholism: No Hx HIV/AIDS: No Hx Splenectomy or Spleen Trauma: No Other PMH: leaky valve, hypothyrodism, pre diabetic, high cholesterol, severe asthma. COPD. plum HTN, JOSE FRANCISCO - Social History Smoking Status: Never smoked Drug Use: None - Physical Exam Exam: General Appearance: Alert, pleasant Eyes: Pupils equal and round, no conjunctival pallor or injection ENT, Mouth: Mucous membranes moist Neck: Normal inspection Respiratory: Mild tachypnea, Rales at the bases Cardiovascular: Regular rate and rhythm Gastrointestinal: Abdomen is soft and nontender Neurological: A&O, nonfocal exam Skin: Warm and dry, no rash Extremities: Nontender, pedal edema Psychiatric: Mood and affect normal Constitutional: Initial Vital Signs Temperature (C) 36.6 C 12/13/17 09:24 Heart Rate 68 12/13/17 09:24 Respiratory Rate 24 H 12/13/17 09:24 Blood Pressure 93/51 L 12/13/17 09:24 O2 Sat (%) 92 12/13/17 09:24 O2 Delivery Mode Nasal Cannula O2 (L/minute) 6 Allergies/Adverse Reactions: No Known Allergies Allergy (Unverified 12/13/17 09:21) Home Medications: Medication Instructions Recorded Levothyroxine [Synthroid 112 mcg 112 mcg PO DAILY06 07/03/16 (*)] Advair 230/21 1 puffs IH DAILY 11/12/17 Alendronate Sodium [Fosamax 70 MG 70 mg PO FR@0700 11/12/17 (*)] Aspirin [Aspirin 81mg (*)] 81 mg PO HS 11/12/17 Fluticasone Nasal [Flonase Nasal 1 sprays NASAL QID PRN 11/12/17 [place]] Fluticasone/Vilanterol [Breo 1 each IH DAILY 11/12/17 Ellipta 100-25 Mcg INH] Herbals/Supplements -Info Only 1 ea PO DAILY 11/12/17 Simvastatin [Zocor] 40 mg PO DAILY18 11/12/17 Tiotropium [place] [Spiriva 1 puffs IH DAILY 11/12/17 Respimat] metFORMIN HCL [Glucophage 500 mg 500 mg PO BIDMEAL 11/12/17 (*)] Bisoprolol Fumarate [Zebeta (*)] 10 mg PO DAILY 12/13/17 Furosemide [Lasix 20 MG (*)] 20 mg PO DAILY 12/13/17 Selexipag [Uptravi] 1,600 mcg PO BID 12/13/17 Medical Decision Making - Diagnostics EKG Interpretation: EKG interpreted by me reveals NSR, rate 60, PVC's, low voltage in anterior leads Imaging Results: Chest X-Ray 12/13/17 09:50 Impression: New bilateral interstitial opacities which may represent edema or atypical infection. Imaging: Discussed imaging studies w/ call center assistant Radiologist, I viewed and interpreted images myself ED Course/Re-evaluation: This patient presents with increasing shortness of breath. Stat EKG reveals no ischemic changes and no dysrhythmia. Stat chest x-ray reveals pulmonary edema versus increased pulmonary infiltrates. Clinical presentation suggests pulmonary edema. BNP is elevated at 2190. D-dimer is also elevated at 3.1. Results discussed with the patient. Will proceed with CT pulmonary angiogram to rule out pulmonary embolism. CTA chest reveals no evidence of PE. Clinical presentation c/w CHF. Lasix IV given. The hospitalist was consulted for admission. Differential Diagnosis: includes though not limited to pneumonia, PTX, PE, ACS, bronchospasm, worsening pulm HTN - Data Points Laboratory Results: Laboratory Results 12/13/17 09:50 12/13/17 09:50 Medications Given: Aspirin (Aspirin) 81 mg PO HS NIDA Stop: 06/11/18 20:59 Last Admin: 12/15/17 19:37 Dose: 81 mg Atorvastatin Calcium (Lipitor) 20 mg PO DAILY@1800 NIDA Stop: 06/11/18 17:59 Last Admin: 12/15/17 17:48 Dose: 20 mg Enoxaparin Sodium (Lovenox) 40 mg SC DAILY NIDA Stop: 06/12/18 08:59 Last Admin: 12/16/17 08:06 Dose: 40 mg Furosemide (Lasix Injection) 40 mg IVP BID@0900,1500 [facility] Stop: 06/12/18 08:59 Last Admin: 12/16/17 08:06 Dose: 40 mg Levothyroxine Sodium (Synthroid) 112 mcg PO DAILY06 NIDA Stop: 06/12/18 05:59 Last Admin: 12/16/17 06:12 Dose: 112 mcg Miscellaneous Medication (Selexipag [Uptravi]) 1,600 mcg PO BID NIDA Stop: 06/11/18 20:59 Last Admin: 12/16/17 08:08 Dose: 1,600 mcg Miscellaneous Medication (Fluticasone/Vilanterol [Breo Ellipta 100-25 Mcg Inh]) 1 each IH DAILY NIDA Stop: 06/12/18 08:59 Last Admin: 12/16/17 08:21 Dose: 1 puffs Tiotropium [place] (Spiriva [place]hal[place]) 18 mcg IH DAILY NIDA Stop: 06/12/18 08:59 Last Admin: 12/16/17 08:21 Dose: 18 mcg Discontinued Medications Furosemide (Lasix Injection) 40 mg IVP ONCE ONE Stop: 12/13/17 12:42 Last Admin: 12/13/17 13:05 Dose: 40 mg Miscellaneous Medication (Advair 230/21) 1 puffs IH DAILY NIDA Stop: 06/11/18 12:44 Last Admin: 12/13/17 18:14 Dose: Not Given Potassium Chloride (Klor-Con) 20 meq PO ONCE ONE Stop: 12/13/17 14:04 Last Admin: 12/13/17 14:39 Dose: 20 meq Potassium Chloride (Klor-Con) 20 meq PO ONCE ONE PRN Reason: Protocol Stop: 12/13/17 19:30 Last Admin: 12/13/17 19:50 Dose: 20 meq Potassium Chloride (Klor-Con) 20 meq PO ONCE ONE PRN Reason: Protocol Stop: 12/14/17 07:53 Last Admin: 12/14/17 09:05 Dose: 20 meq Potassium Chloride (Klor-Con) 10 meq PO ONCE ONE PRN Reason: Protocol Stop: 12/14/17 21:17 Last Admin: 12/14/17 22:09 Dose: 10 meq Potassium Chloride (Klor-Con) 10 - 40 meq PO ONCE ONE PRN Reason: Protocol Stop: 12/15/17 08:55 Last Admin: 12/15/17 09:47 Dose: 10 meq Potassium Chloride (Klor-Con) 10 - 40 meq PO ONCE ONE PRN Reason: Protocol Stop: 12/16/17 08:32 Last Admin: 12/16/17 08:38 Dose: Not Given Departure - Departure Disposition: [facility] Inpatient Acute Clinical Impression: Acute exacerbation of congestive heart failure Qualifiers: Heart failure type: unspecified Qualified Code(s): I50.9 - Heart failure, unspecified Condition: Fair
--- NOTE | 2017-12-13 11:43 | CPEKG ---
Heart Rate: 60 RR Interval: 1000 P-R Interval: 192 QRSD Interval: 90 QT Interval: 432 QTC Interval: 432 P [place]: -38 QRS [place]: 53 T Wave [place]: 31 EKG Severity - ABNORMAL ECG - EKG Impression: SINUS RHYTHM EKG Impression: MULTIPLE VENTRICULAR PREMATURE COMPLEXES EKG Impression: LOW VOLTAGE IN FRONTAL LEADS Electronically Signed By: Anneliese Ann 13-Dec-2017 15:18:55
[2017-12-13] MEDS ORDERED: FLUTICASONE NASAL 120 SPRAYS/16 GM MDI EACHNARE PRN (12:33)
[2017-12-13] MEDS ORDERED: ACETAMINOPHEN 325 MG TAB PO PRN (12:38)
[2017-12-13] MEDS ORDERED: ALBUTEROL 3 ML DEYVIAL IH PRN (12:38)
[2017-12-13] MEDS ORDERED: ONDANSETRON DISINTEGRATING 4 MG TAB PO PRN (12:38)
[2017-12-13] MEDS ORDERED: ONDANSETRON 4 MG/2 ML VIAL IVP PRN (12:38)
[2017-12-13] MEDS ORDERED: PROTOCOL POTASSIUM 1 DOSE MISC PRN (12:40)
[2017-12-13] MEDS ORDERED: FUROSEMIDE 40 MG/4 ML VIAL IVP ONE (12:41)
[2017-12-13] MEDS ORDERED: ADVAIR IH SCH (12:45)
[2017-12-13] MEDS ORDERED: FUROSEMIDE 40 MG/4 ML VIAL ONE (12:58)
--- NOTE | 2017-12-13 13:25 | PDGENHP ---
History and Physical - Chief Complaint SOB - History of Present Illness 77 yo female with h/o JOSE FRANCISCO, pulmonary hypertension, COPD and chronic hypoxemia requiring 6 LPM at baseline, presents to ED with SOB. She is followed at [facility]. She recently had a Holter monitor placed and was called recently with the recommendation that she start a beta myla for some type of arrhythmia. She is unsure of the diagnosis. Since she started the Bisoprolol 10 mg daily, she has felt overwhelming fatigue, increased shortness of breath, several pound weight gain and peripheral edema. Today, she walked down her stairs and felt extremely short of breath. She checked her oxygen saturation and found it to be in the 60's. She went to her pilates class and was promptly sent to the ED. She denies chest pain or chest pressure. She sleeps propped up at baseline so does not endorse orthopnea or PND. The last echo in our system was a QUYEN in 09/2015 which showed an EF of 60% and moderate MR and TR. She is also treated for COPD at [facility], but is a lifetime non-smoker. It sounds like she was ruled out for alpha-1 anti-trypsin deficiency as she states she did not test positive for a genetic abnormality as a cause of her COPD. PFT 's in 2016 did not reveal obstructive disease. She has been managed on Spiriva , Breo and Albuterol in the past. She takes Uptriva for her pulmonary hypertension. She also has a lifelong history of allergies and chronic cough with post-nasal symptoms. No fevers/chills, abdominal pain or changes in her bowel or bladder habits. In the ED, a CXR was consistent with pulmonary edema. Her BNP is elevated. She is admitted to the PCU for further management of acute heart failure. History Information - Allergies/Home Medication List Allergies/Adverse Reactions: No Known Allergies Allergy (Unverified 12/13/17 09:21) Home Medications: Levothyroxine [Synthroid 112 mcg (*)] 112 mcg PO DAILY06 07/03/16 [Last Taken ] Advair 230/21 1 puffs IH DAILY 11/12/17 [Last Taken 11/12/17 09:00] Alendronate Sodium [Fosamax 70 MG (*)] 70 mg PO FR@0700 11/12/17 [Last Taken ] Aspirin [Aspirin 81mg (*)] 81 mg PO HS 11/12/17 [Last Taken 12/12/17] Fluticasone Nasal [Flonase Nasal [place]] 1 sprays NASAL QID PRN 11/12/17 [Last Taken 11/12/17] Fluticasone/Vilanterol [Breo Ellipta 100-25 Mcg INH] 1 each IH DAILY 11/12/17 [ Last Taken 12/13/17] Herbals/Supplements -Info Only 1 ea PO DAILY 11/12/17 [Last Taken Unknown] Selexipag [Uptravi] 800 mcg PO BID 11/12/17 [Last Taken 12/13/17] Simvastatin [Zocor] 40 mg PO DAILY18 11/12/17 [Last Taken 12/12/17] Tiotropium [place] [Spiriva Respimat] 1 puffs IH DAILY 11/12/17 [Last Taken ] metFORMIN HCL [Glucophage 500 mg (*)] 500 mg PO BIDMEAL 11/12/17 [Last Taken ] Bisoprolol Fumarate [Zebeta (*)] 10 mg PO DAILY 12/13/17 [Last Taken 12/13/17] Furosemide [Lasix 20 MG (*)] 20 mg PO DAILY 12/13/17 [Last Taken 12/13/17] I have personally reviewed and updated: family history, medical history, social history, surgical history - Past Medical History Additional medical history: JOSE FRANCISCO: on CPAP. Pulmonary htn: echo 02/2017 showed nl EF, RVSP 58, mod MR and mod TR. Chronic hypoxemia: 6 LPM baseline. Hypothyroidism. Allergic rhinitis with chronic cough. COPD: neg testing for alpha-1 antitrypsin deficiency. Pre-diabetes. Hyperlipidemia. Vocal cord dysfunction. CPPD. H/O breast cancer: treated with breast conservation therapy - Surgical History Additional surgical history: Lumpectomy for breast cancer - Family History Positive for: cancer - Social History Smoking Status: Never smoked Alcohol Use: None Drug Use: None Additional social history: Lives independently. Review of Systems Review of Systems: ROS: 10pt was reviewed & negative except for what was stated in HPI & below Physical Exam Physical Exam: Temp Pulse Resp BP Pulse Ox 36.6 C 61 16 113/61 96 12/13/17 09:24 12/13/17 13:06 12/13/17 13:06 12/13/17 13:06 12/13/17 13:06 O2 (L/minute) 6 Constitutional: no apparent distress Eyes: PERRL Ears, Nose, Mouth, Throat: moist mucous membranes Cardiovascular: systolic murmur, JVD, other (bigeminy type rhythm) Respiratory: no respiratory distress, reduced air movement, inspiratory crackles Gastrointestinal: normoactive bowel sounds, soft, non-tender abdomen Skin: warm Musculoskeletal: full muscle strength, other (1-2+ b/l LE edema) Neurologic: AAOx3 Psychiatric: interacting appropriately Lab Data & Imaging Review 12/13/17 09:50 12/13/17 09:50 WBC 6.24 10^3/uL (3.80-9.50) 12/13/17 09:50 RBC 3.60 10^6/uL (4.18-5.33) L 12/13/17 09:50 Hgb 10.0 g/dL (12.6-16.3) L 12/13/17 09:50 Hct 32.8 % (38.0-47.0) L 12/13/17 09:50 MCV 91.1 fL (81.5-99.8) 12/13/17 09:50 MCH 27.8 pg (27.9-34.1) L 12/13/17 09:50 MCHC 30.5 g/dL (32.4-36.7) L 12/13/17 09:50 RDW 15.7 % (11.5-15.2) H 12/13/17 09:50 Plt Count 273 10^3/uL (150-400) 12/13/17 09:50 MPV 10.9 fL (8.7-11.7) 12/13/17 09:50 Neut % (Auto) 65.0 % (39.3-74.2) 12/13/17 09:50 Lymph % (Auto) 22.8 % (15.0-45.0) 12/13/17 09:50 [place] % (Auto) 6.9 % (4.5-13.0) 12/13/17 09:50 Eos % (Auto) 3.5 % (0.6-7.6) 12/13/17 09:50 Baso % (Auto) 1.3 % (0.3-1.7) 12/13/17 09:50 Nucleat RBC Rel Count 0.0 % (0.0-0.2) 12/13/17 09:50 Absolute Neuts (auto) 4.06 10^3/uL (1.70-6.50) 12/13/17 09:50 Absolute Lymphs (auto) 1.42 10^3/uL (1.00-3.00) 12/13/17 09:50 Absolute Monos (auto) 0.43 10^3/uL (0.30-0.80) 12/13/17 09:50 Absolute Eos (auto) 0.22 10^3/uL (0.03-0.40) 12/13/17 09:50 Absolute Basos (auto) 0.08 10^3/uL (0.02-0.10) 12/13/17 09:50 Absolute Nucleated RBC 0.00 10^3/uL (0-0.01) 12/13/17 09:50 Immature Gran % 0.5 % (0.0-1.1) 12/13/17 09:50 Immature Gran # 0.03 10^3/uL (0.00-0.10) 12/13/17 09:50 D-Dimer 3.14 ug/mLFEU (0.00-0.50) H 12/13/17 09:50 Sodium 143 mEq/L (135-145) 12/13/17 09:50 Potassium 3.7 mEq/L (3.5-5.2) 12/13/17 09:50 Chloride 107 mEq/L (97-110) 12/13/17 09:50 Carbon Dioxide 26 mEq/l (22-31) 12/13/17 09:50 Anion Gap 10 mEq/L (8-16) 12/13/17 09:50 BUN 23 mg/dL (7-23) 12/13/17 09:50 Creatinine 0.8 mg/dL (0.6-1.0) 12/13/17 09:50 Estimated GFR > 60 12/13/17 09:50 Glucose 101 mg/dL (70-100) H 12/13/17 09:50 Calcium 8.9 mg/dL (8.5-10.4) 12/13/17 09:50 Troponin I < 0.012 ng/mL (0.000-0.034) 12/13/17 09:50 NT-Pro-B Natriuret Pep 2190 pg/mL (0-450) H 12/13/17 09:50 Visualized and Interpreted Chest x-ray results: Yes Chest X-Ray results: other (+pulmonary edema, cardiomegaly) Visualized and Interpreted EKG results: Yes EKG Interpretation: Positive for: normal sinsus rhythm, NS ST wave abnormalities Assessment & Plan Assessment: Acute on chronic hypoxemic respiratory failure secondary to acute heart failure - On baseline O2 of 6 LPM, note she desatted to the 60's at home with activity. Presents with pulmonary edema on CXR, elevated BNP, peripheral edema and elevated JVP. EKG non-ischemic, no chest pain. This occurred after initiation of beta myla. Note lowish BP on arrival. Also consider progression of valve disease. -IV Lasix 40 mg BID, monitor I&O's, daily weights (dry weight 192 lbs, 197 lbs on arrival) -check echo to eval for progression of MR / TR and RVSP given h/o pulmonary htn, could be right HF. Prior EF 60% in 09/2015. -hold beta myla, may have contributed to hypotension (SBP 90's on arrival) -trend troponin -discussed with cardiology, they will consult Pulmonary hypertension - note h/o JOSE FRANCISCO, previous RVSP 58. Sounds like she has had a right heart cath at [facility], trying to obtain records -cont Uptravi, pt to have her home med brought in -echo pending MR and TR - echo pending, cards consulting as above Cardiac arrhythmia - recent holter showed abnormal rhythm and pt was started on beta myla. This is held due to hypotension and acute HF since initiation. -obtain records from [facility], request ordered -monitor on telemetry COPD - Lifetime non-smoker. alpha-1 antitrypsin testing in past MM genotype, no deficiency. Does not appear to be in acute exacerbation. -cont spiriva, Breo, advair, prn nebs JOSE FRANCISCO - cont home CPAP Hypothyroidism - check TSH and cont home levothyroxine dose Pre-DM - hold metformin due to contrast load from CTA. BG 100 on arrival. -check a1c Chronic rhinitis / allergies - Flonase Osteoporosis - cont Fosamax Full code DVT PPLX - Lovenox Dispo - admit to inpatient. Anticipate >48 hrs hospitalization for ongoing management of acute heart failure, pulmonary hypertension and hypoxemia
[2017-12-13] MEDS ORDERED: POTASSIUM CL 20 MEQ TAB PO ONE (14:03)
[2017-12-13] MEDS ORDERED: IPRATROPIUM/ALBUTEROL 3 ML DEYVIAL IH SCH (16:00)
--- NOTE | 2017-12-13 16:01 | ECHO ---
[email or web address] [address] [address] Main: [phone] Fax: Transthoracic Echocardiogram Name: ROSAS PENA MR#: [id number] Study Date: 12/13/2017 Study Time: 01:45 PM Date of : 1940 Age: 77 year(s) Height: 170.2 cm (67 in.) Weight: 88.91 kg (196 lb.) BSA: 2 m2 Gender: Female Examination: Echo Indication: acute heart failure (right?) h/o pulm htn, chronic hypoxemia Image Quality: Adequate Contrast: Requested by: Keeley Pandya BP: 84 mmHg/58 mmHg Heart Rate: Rhythm: Atrial fibrillation Indication: acute heart failure (right?) h/o pulm htn, chronic hypoxemia Procedure Staff Motivational Speaker: iKm Mclain [facility] Reading Physician: John Jaramillo MD Requesting Provider: Conclusions: Normal size left ventricle. No LV hypertrophy. Normal global systolic LV function. EF is 64 %. No regional wall motion abnormality. The left atrium is severely dilated. Right atrial enlargement. The mitral valve is normal in appearance and function. There is moderate thickening of the mitral valve leaflets. Moderate mitral valve regurgitation is present. The aortic valve is tri-leaflet and functions normally. Trivial aortic valve regurgitation. The tricuspid valve is normal in appearance and function. Moderate tricuspid regurgitation is present. The pulmonary artery pressure is moderately increased. Mild pulmonic valve regurgitation is noted. Normal size ascending aorta measuring 3.3 cm. Moderate dilatation MPA. Trivial pericardial effusion. Measurements: Chambers Valvular Assessment AV/MV Valvular Assessment TV/PV Normal Normal Normal Name Value Range Name Value Range Name Value Range IVSd (2D): 1.2 cm (0.6 cm-1.1 AV Vmax: 1.49 m/s (1 m/s-1.7 TR Vmax: 3.27 mm/s ( - ) cm) m/s) TR PGmax: 43 mmHg ( - ) LVDd (2D): 4.8 cm (3.9 cm-5.3 AV maxP mmHg ( - ) syst. PAP: 53 mmHg ( - ) cm) LVOT Vmax: 1.17 m/s (0.7 m/s-1.1 PV Vmax: 0.99 m/s (0.6 m/s-0.9 m/s) m/s) Patient: ROSAS PENA Study Date: 12/13/2017 Page 1 of 2 01:45 PM LVDs (2D): 3.4 cm (2.1 cm-4 MV E Vmax: 0.92 m/s ( - ) PV PGmax: 4 mmHg ( - ) cm) LVPWd (2D): 0.9 cm ( - ) LVEF (BP): 64 % (>=55 %) RVDd(2D): 4.0 cm (1.9 cm-3.8 cmmm) Continued Measurements: Chambers Valvular Assessment AV/MV Valvular Assessment TV/PV Name Value Name Value Name Value LADs: 5.3 cm MV DecTime: 225 m/s CVP (est.): 10 mmHg LADs Lon.0 cm MV E' Septal: 0.09 m/s LA Area: 33.7 cm2 MV E/E' Septal: 10.00 LA Volume: 108 ml MV E/E' Lateral: 10.70 LA Volume Index: 54.0 ml/m2 MR Vena Contracta: 0.5 cm TAPSE: 2.2 cm RA Area: 19.3 cm2 Additional Vessels Pulmonary Vein/Artery Name Value Name Value Ao Ascendin.3 cm Main Pulm Artery: 3.4 cm Findings: Left Ventricle: Normal size left ventricle. No LV hypertrophy. Normal global systolic LV function. EF is 64 %. No regional wall motion abnormality. Unable to assess diastolic dysfunction. Right Ventricle: Normal size right ventricle. Normal RV function. Left Atrium: The left atrium is severely dilated. Right Atrium: Right atrial enlargement. Mitral Valve: The mitral valve is normal in appearance and function. There is moderate thickening of the mitral valve leaflets. Moderate mitral valve regurgitation is present. No mitral stenosis is present. Aortic Valve: The aortic valve is tri-leaflet and functions normally. Trivial aortic valve regurgitation. No aortic valve stenosis is present. Tricuspid Valve: The tricuspid valve is normal in appearance and function. Moderate tricuspid regurgitation is present. Right ventricular systolic pressure measures 53mmHg. The pulmonary artery pressure is moderately increased. Pulmonic Valve: The pulmonic valve is normal in appearance and function. Mild pulmonic valve regurgitation is noted. Aorta: The aorta is normal. Normal size ascending aorta measuring 3.3 cm. Pulmonary Artery: Moderate dilatation MPA. Pericardium: Trivial pericardial effusion. There is a pleural effusion present. (No Signature Object) Patient: ROSAS PENA Study Date: 12/13/2017 Page 2 of 2 01:45 PM [id number]
--- NOTE | 2017-12-13 16:18 | PDMN ---
Medical Necessity Medical necessity: est los> 2mn for acute on chronic hypoxemic resp failure r/t acute heart failure and hypoxia w/O2 sat 60's; admit for IV Lasix, I&O, cardiac consult, and telemetry; comorbid pulmonary htn, MR, TR, COPD, cardiac arrhythmia , and JOSE FRANCISCO; per order and H&P 12/13/17
[2017-12-13] MEDS: ATORVASTATIN CALCIUM 20 MG TAB PO SCH (17:31)
[2017-12-13] MEDS ORDERED: ATORVASTATIN CALCIUM 20 MG TAB PO SCH (18:00)
[2017-12-13] MEDS ORDERED: NON-FORMULARY NEW DRUG (Simvastatin [Zocor] 40 MG) PO SCH (18:00)
[2017-12-13] MEDS ORDERED: POTASSIUM CL 10 MEQ TAB PO ONE (19:29)
[2017-12-13] MEDS: ASPIRIN 81 MG CHEWABLE TAB PO SCH (19:50)
[2017-12-13] MEDS: SELEXIPAG 1600 MCG PO SCH (19:53)
[2017-12-13] MEDS ORDERED: SELEXIPAG 800 MCG PO SCH (21:00)
[2017-12-14] MEDS: LEVOTHYROXINE 112 MCG TAB PO SCH (05:12)
[2017-12-14] MEDS ORDERED: ALENDRONATE SODIUM 70 MG TAB PO SCH (07:00)
[2017-12-14] MEDS ORDERED: POTASSIUM CL 10 MEQ TAB PO ONE ×2 (07:52→21:16)
[2017-12-14] MEDS ORDERED: NON-FORMULARY NEW DRUG (Fluticasone/Vilanterol [Breo Ellipta 100-25 Mcg Inh] 1 EACH) IH SCH (09:00)
[2017-12-14] MEDS ORDERED: TIOTROPIUM BROMIDE IH SCH (09:00)
[2017-12-14] MEDS: ENOXAPARIN 40 MG/0.4 ML SYR SC SCH (09:06)
[2017-12-14] MEDS: SELEXIPAG 1600 MCG PO SCH ×2 (09:07→20:04)
[2017-12-14] MEDS: FUROSEMIDE 40 MG/4 ML VIAL IVP SCH ×2 (09:07→15:38)
[2017-12-14] MEDS: TIOTROPIUM INHALER 18 MCG/DOSE 5 DOSE/MDI IH SCH (09:08)
[2017-12-14] MEDS: Fluticasone/Vilanterol [Breo Ellipta 100-25 Mcg Inh] IH SCH (09:55)
--- NOTE | 2017-12-14 11:49 | GCON ---
[f rep st] CONSULTATION CARDIOLOGY CONSULTATION. DATE OF CONSULTATION: 12/14/2017 REASON FOR CONSULTATION: I was asked to see the patient in consultation because of congestive heart failure symptoms, by the hospitalist service. HISTORY OF PRESENT ILLNESS: The patient is a 77-year-old lady with a history of relatively extreme a llergies. She remembers requiring oxygen tank and mask when she felt short of breath in the spring a summer as a child aged 10 to 11. She would develop respiratory difficulties during the allergy seas on and would ultimately require oxygen for shortness of breath. She kept an oxygen tank and mask in her room and would go to her room and use the oxygen at that time. She always felt much better in winter which was her favorite time of year as the snow seemed to take the particulate matter out of the air and she was able to breathe much more easily and had no difficulties with exercise during winter months. She has been followed by an web programmer here in [place], and with desensitization the rapy, she ended up in the emergency room 3 separate times for impending anaphylaxis related to those injections. She has been followed and treated down at [facility] for underlying lung disease. She wears a mask when she goes outside during allergy season and uses an extensive filtration system within her house to focus on air quality and purity. The patient has been evaluated at [facility] with a stress test within the last 2 months and was told that was normal. She complained that she had an increased heart rate and noted her pulse to be 150 on a pulse ox monitor. Ultimately, she underwent a 48-hour Holter and was told that she had flu tter, and this past Sunday, was started on bisoprolol by a physician at [facility]. She almost immediately began to note worsening shortness of breath and leg swelling and her legs, over the next several days, increased to almost double their size. Her heart rate decreased from an average of 70s down into the 50s with the medication. The patient ultimately presented to the emergency department because her oxygen saturation on her home pulse ox was as low as 60, and she could not perform in he r exercise Pilates class. At the time of her presentation to the emergency department, she was evalu ated by Dr. Ann and found to be somewhat hypoxic. A chest x-ray revealed findings consistent with c ongestive heart failure. She did not have evidence of pulmonary emboli in spite of a mildly elevated D-dimer. Her BNP was noted to be elevated as well with an N-terminal proBNP level of 2190. Her TSH was normal and the troponins including the trending was less than 0.012 ng/mL which is normal. Her EKG obtained at that time showed normal sinus rhythm with interpolated PVCs. There was no evidence o f ischemia. ST segments and T-waves were normal. The patient was started on intravenous Lasix and an echocardiogram was obtained which was read by Dr. Jaramillo revealing moderate mitral and tricuspid regurgitation with moderate pulmonary hypertension wi th an estimated PA pressure of 58. The patient feels much better since discontinuing the bisoprolol and the addition of Lasix to her reg imen. She is resting quite comfortably and flat in the bed. PHYSICAL EXAMINATION: GENERAL: Appears well and not breathless with 6 L by nasal cannula. VITAL SI GNS: Her blood pressure is 105/58, her pulse is 76 and regular with relatively frequent extrasystole s. There is a 2/6 systolic murmur, consistent with mitral and tricuspid regurgitation. LUNGS: Bila teral crackles at the bases. ABDOMEN: Benign with positive bowel sounds. Nondistended, nontender. Her body habitus precludes an accurate examination, but no obvious masses or hepatosplenomegaly are noted. EXTREMITIES: 2+ pitting edema which is unusual for the patient and is relatively easy to dem onstrate in the pretibial region bilaterally. NEUROLOGIC: She does not appear anxious or worried an d is somewhat matter of fact in her answers and discussion. She is alert and oriented x3 and is able to ambulate without assistance. LABORATORY STUDIES: I have already covered for the most part. On admission, her nonfasting blood abdi gar was 101, potassium is 3.7 and 3.6, BUN and creatinine are 19 and 0.7 with a GFR that is greater t porras 60. TSH is 3.98 and is noted to be normal. Her D-dimer was specifically elevated at 3.14, johanna l range being 0-0.5 mcg/mL . Her EKG reveals normal sinus rhythm without ischemic changes as I mentioned and reveals multiform PVC s that are interpolated and are not causing a compensatory pause. Her echocardiogram results were reviewed by me directly, and she does have normal ejection fraction w ithout significant wall motion abnormalities. I also reviewed her chest x-ray both from this admission and from a prior evaluation in October of this year. This does demonstrate increased markings within the lung canales as consistent with possible i nterstitial lung disease. IMPRESSION: The patient has acute diastolic heart failure, temporarily related to the addition of bi soprolol to her medical regimen. Although she did not have a true allergy to the medication, she cer tainly had an adverse reaction to the beta blockers, and those should probably be avoided in the futu re. The patient was told that she had atrial flutter on a Holter monitor. I would like to see at le ast the report, and ideally the tracings from that 48-hour Holter where that diagnosis was secured. Given the fact that atrial flutter, if it is counter-clockwise and using the cable tricuspid isthmus, would be ablatable 90% of the time with a very low major complication rate of less than 1% to 2%, it may be reasonable in this patient with underlying significant lung disease and pulmonary hypertensio n to be considered for atrial flutter electrophysiology study, mapping and ablation procedure to help reduce the risk of recurrences of tachycardia in the future. The patient does have moderate mitral and tricuspid valve disease but is not a good candidate for surgery, given her lung disease and pulmo nary hypertension which is likely related to chronic lung pathology. For now, I think it is reasonab le to continue with diuresis. Dr. Baltazar is rounding over the weekend and I will ask him to see the pa tient over the weekend and hopefully will have the results from [facility] by tomorrow so that kristy garciabaltazar can be reviewed directly by our electrophysiology team. Copy requested to: [employer] [facility] /[id number]/MODL
--- NOTE | 2017-12-14 12:24 | ASMTCASEMG ---
Living Arrangements What is your living Answers: Alone arrangement? Who do you live with? Type Of Residence What kind of residence do Answers: House you live in? Discharge Plan Comments Coordination Status Comments Notes: Pts case discussed in tx rounds. Pt is a 77 y/o female admitted for CHF. Therapies have been ordered. OT has cleared pt to d/c home independent. Awaiting recommendations from PT. Pt reports that she is very mobile and exercises multiple times a week. Pt will most likely d/c without any needs. CM available for changes. Plan: Independent Date Signed: 12/14/2017 12:24 PM Electronically Signed By:ROBERT Edmondson
--- NOTE | 2017-12-14 13:28 | HOSPPROG ---
Hospitalist Progress Note Assessment/Plan: # acute on chronic hypoxic resp failure - d/t pulm edema in setting of chronic hypoxia # acute dCHF exacerbation with pulm edema - improving - d/t BB vs a-flutter; also consider HVD as contributor - cont lasix 40 IV BID # COPD - cont home inhalers # pulm htn - follow at [facility] - RVSP 58 - on uptravi # JOSE FRANCISCO - CPAP # pulm nodule and hilad LAD - outpatient CT 3-6 months # VHD - mod MR/TR # hypothyroid - synthroid # pre-DM - holding metformin 72hrs post contrast # OP - fosamax # dvt ppx - lovenox Subjective: breathing feels better but not nearly at baseline Objective: Vital Signs Temp Pulse Resp BP Pulse Ox 37.2 C 65 22 H 109/63 100 12/14/17 12:00 12/14/17 12:00 12/14/17 12:00 12/14/17 12:00 12/14/17 12:00 Laboratory Results 12/14/17 03:32 12/13/17 12/14/17 12/15/17 05:59 05:59 05:59 Intake Total 1000 Output Total 1500 450 Balance -500 -450 chart reviewed CTA reviewed CXR reviewed ECG personally reviewed - Physical Exam Constitutional: no apparent distress, appears nourished Cardiovascular: regular rate and rhythym, no murmur, rub, or gallop Respiratory: no respiratory distress, inspiratory crackles (R>L base), No bronchial breath sounds, No respiratory distress, No dullness to percussion, No rhonchi Gastrointestinal: soft, non-tender abdomen, no palpable masses, No hepatosplenomegally, No guarding, No rebound, No distension ICD10 Worksheet Patient Problems: Problems Problem Status Onset Arthritis of wrist, left Acute
[2017-12-14] MEDS: ATORVASTATIN CALCIUM 20 MG TAB PO SCH (17:28)
[2017-12-14] MEDS: ASPIRIN 81 MG CHEWABLE TAB PO SCH (20:04)
[2017-12-15] MEDS: LEVOTHYROXINE 112 MCG TAB PO SCH (08:08)
[2017-12-15] MEDS: FUROSEMIDE 40 MG/4 ML VIAL IVP SCH ×2 (08:10→16:23)
[2017-12-15] MEDS: ENOXAPARIN 40 MG/0.4 ML SYR SC SCH (08:10)
[2017-12-15] MEDS: SELEXIPAG 1600 MCG PO SCH ×2 (08:11→19:37)
[2017-12-15] MEDS ORDERED: POTASSIUM CL 10 MEQ TAB PO ONE (08:54)
--- NOTE | 2017-12-15 09:21 | SOAPPROG ---
SOAP Progress Note Assessment/Plan: Assessment/Plan: This is a 77 yr old female with history of pulmonary HTN, emphysema, asthma, who has been eval from cardiac standpoint and the findings are as follows: Normal EF Severe LAE Varying MR from mild to moderate (changes from echo to echo) Mild STEPHANIE Pulm HTN Normal coronaries. Holter showed 23K PVC and these are not unifocal. She was given BB for the same. She has not tolerated it. Recommend stopping BB. Will assess for CCB as outpatient. F/U echo as outpt. 12/15/17 09:18 Subjective: Pt is feeling well and is wanting to go home Objective: Vital Signs Temp Pulse Resp BP Pulse Ox 36.8 C 66 16 109/71 99 12/15/17 07:19 12/15/17 07:19 12/15/17 07:19 12/15/17 07:19 12/15/17 07:19 Laboratory Results 12/15/17 03:42 12/14/17 12/15/17 12/16/17 05:59 05:59 05:59 Intake Total 1000 1750 Output Total 1500 3450 Balance -500 -1700 Physical Exam - Physical Exam General Appearance: alert, no apparent distress EENT: PERRL/EOMI, normal ENT inspection, pharynx normal Neck: non-tender, supple Respiratory: decreased breath sounds, No rales Cardiac/Chest: regular rate, rhythm, No gallop Abdomen: non-tender, soft ICD10 Worksheet Patient Problems: Problems Problem Status Onset Arthritis of wrist, left Acute
[2017-12-15] MEDS: Fluticasone/Vilanterol [Breo Ellipta 100-25 Mcg Inh] IH SCH (09:45)
[2017-12-15] MEDS: TIOTROPIUM INHALER 18 MCG/DOSE 5 DOSE/MDI IH SCH (10:45)
--- NOTE | 2017-12-15 15:38 | ASMTCMCOM ---
CM Note CM Note Notes: Reviewed chart, spoke with JOSE Spears, Dr. Massey and pt regarding discharge plan of care, pt's progress. Pt to have a chest x-ray today and a viral PCR sent for further evaluation and treatment. OT/PT cleared. Pt lives independently and exercises regularly, she denies needs for discharge. Anticipate pt will discharge independently when stable. Pt may need outpatient cardiac rehab. CM available for any further issues or concerns. Current Discharge Plan: Home independently Date Signed: 12/15/2017 03:37 PM Electronically Signed By:Liliane Washburn RN
--- NOTE | 2017-12-15 16:10 | HOSPPROG ---
Hospitalist Progress Note Assessment/Plan: # acute on chronic hypoxic resp failure - suspect d/t pulm edema in setting of chronic hypoxia - R base more consolidated, will check PCT and CBC and consider abx # acute dCHF exacerbation with pulm edema - improving - unclear precipitant - cont lasix 40 IV BID # COPD - cont home inhalers # pulm htn - follow at [place] - RVSP 58 - on uptravi # JOSE FRANCISCO - CPAP # pulm nodule and hilad LAD - outpatient CT 3-6 months # VHD - mod MR/TR # hypothyroid - synthroid # pre-DM - holding metformin 72hrs post contrast # OP - fosamax # dvt ppx - lovenox Subjective: ambulated, sats dropped to 80% on 6L; she c/o SOB Objective: Vital Signs Temp Pulse Resp BP Pulse Ox 36.8 C 80 18 103/75 96 12/15/17 16:00 12/15/17 16:00 12/15/17 16:00 12/15/17 16:00 12/15/17 16:00 Microbiology 12/15/17 09:40 Respiratory Panel (PCR) - Final Nasal, Sinus - Swab No Organism Detected Laboratory Results 12/15/17 03:42 12/14/17 12/15/17 12/16/17 05:59 05:59 05:59 Intake Total 1000 1750 1500 Output Total 1500 3450 1900 Balance -500 -1700 -400 CXR personally reviewed discussed with Dr Baltazar - Physical Exam Constitutional: no apparent distress, appears nourished Eyes: anicteric sclera Ears, Nose, Mouth, Throat: hearing normal Cardiovascular: regular rate and rhythym, no murmur, rub, or gallop Respiratory: inspiratory crackles (bilat bases) Gastrointestinal: No distension Genitourinary: No wilson in urethra Skin: warm Musculoskeletal: full muscle strength Neurologic: AAOx3 Psychiatric: depressed ICD10 Worksheet Patient Problems: Problems Problem Status Onset Arthritis of wrist, left Acute
[2017-12-15 17:28] LABS: PLATELET COUNT 304 10^3/uL (150-400)
[2017-12-15] MEDS: ATORVASTATIN CALCIUM 20 MG TAB PO SCH (17:48)
[2017-12-15] MEDS: ASPIRIN 81 MG CHEWABLE TAB PO SCH (19:37)
[2017-12-16] MEDS ORDERED: POTASSIUM CL 10 MEQ TAB PO ONE ×3 (02:27→08:35)
[2017-12-16] MEDS: LEVOTHYROXINE 112 MCG TAB PO SCH (06:12)
[2017-12-16] MEDS: FUROSEMIDE 40 MG/4 ML VIAL IVP SCH ×2 (08:06→14:53)
[2017-12-16] MEDS: ENOXAPARIN 40 MG/0.4 ML SYR SC SCH (08:06)
[2017-12-16] MEDS: SELEXIPAG 1600 MCG PO SCH ×2 (08:08→20:47)
[2017-12-16] MEDS: Fluticasone/Vilanterol [Breo Ellipta 100-25 Mcg Inh] IH SCH (08:21)
[2017-12-16] MEDS: TIOTROPIUM INHALER 18 MCG/DOSE 5 DOSE/MDI IH SCH (08:21)
--- NOTE | 2017-12-16 11:55 | HOSPPROG ---
Hospitalist Progress Note Assessment/Plan: # acute on chronic (6L O2) hypoxic resp failure - slowly improving with diuresis - suspect d/t pulm edema in setting of chronic hypoxia - pct low - will hold on abx currently # acute dCHF exacerbation with pulm edema - improving - unclear precipitant - cont lasix 40 IV BID # COPD - cont home inhalers # pulm htn - follow at [facility] RVSP 58 - on uptravi # JOSE FRANCISCO - CPAP # pulm nodule and hilad LAD - outpatient CT 3-6 months # VHD - mod MR/TR # hypothyroid - synthroid # pre-DM - holding metformin 72hrs post contrast - restart tomorrow # OP - fosamax # dvt ppx - lovenox Subjective: breathing feels slightly better today Objective: Vital Signs Temp Pulse Resp BP Pulse Ox 36.7 C 73 20 105/56 L 97 12/16/17 11:35 12/16/17 11:35 12/16/17 11:35 12/16/17 11:35 12/16/17 11:35 Microbiology 12/15/17 09:40 Respiratory Panel (PCR) - Final Nasal, Sinus - Swab No Organism Detected Laboratory Results 12/15/17 17:20 12/16/17 03:49 12/15/17 12/16/17 12/17/17 05:59 05:59 05:59 Intake Total 1750 1900 500 Output Total 3450 2750 1100 Balance -1700 -850 -600 - Physical Exam Constitutional: no apparent distress, appears nourished Cardiovascular: regular rate and rhythym, systolic murmur, No diastolic murmur, No tachycardia, No bradycardia, No edema Respiratory: no respiratory distress, inspiratory crackles (L>R), No clear to auscultation, No reduced air movement, No dullness to percussion, No rhonchi Gastrointestinal: soft, non-tender abdomen, no palpable masses, No guarding, No rebound, No distension ICD10 Worksheet Patient Problems: Problems Problem Status Onset Arthritis of wrist, left Acute Acute exacerbation of congestive heart failure Acute
[2017-12-16] MEDS: ATORVASTATIN CALCIUM 20 MG TAB PO SCH (17:52)
[2017-12-16] MEDS: ASPIRIN 81 MG CHEWABLE TAB PO SCH (20:47)
[2017-12-16] MEDS ORDERED: SELEXIPAG 1600 MCG PO SCH ×2 (21:00)
[2017-12-17] MEDS: LEVOTHYROXINE 112 MCG TAB PO SCH (06:16)
[2017-12-17 07:52] VITALS: BP 142/78
[2017-12-17] MEDS: TIOTROPIUM INHALER 18 MCG/DOSE 5 DOSE/MDI IH SCH (08:01)
[2017-12-17] MEDS: Fluticasone/Vilanterol [Breo Ellipta 100-25 Mcg Inh] IH SCH (08:01)
[2017-12-17] MEDS: SELEXIPAG 1600 MCG PO SCH (08:03)
[2017-12-17] MEDS: ENOXAPARIN 40 MG/0.4 ML SYR SC SCH (08:03)
[2017-12-17] MEDS: FUROSEMIDE 40 MG/4 ML VIAL IVP SCH (08:04)
[2017-12-17] MEDS ORDERED: POTASSIUM CL 10 MEQ TAB PO ONE (08:18)
[2017-12-17] MEDS ORDERED: metFORMIN HCL 500 MG TAB PO SCH (09:00)
--- NOTE | 2017-12-17 15:15 | ASDISCHSUM ---
Discharge Information Plan Status:Home with No Needs Medically Cleared to Leave:12/17/2017 Discharge Date:12/17/2017 01:01 PM CM D/C Disposition:Home, Routine, Self-Care ADT D/C Disposition:Home, Routine, Self-Care Projected Discharge Date:12/17/2017 01:01 PM Transportation at D/C:Self Discharge Delay Reason: Follow-Up Date:12/17/2017 01:01 PM Discharge Slot: Final Diagnosis: Placement Information Patient Contact Information Contact Name:JASS Relationship:Mary Address:[address] City:[place] Alternate Phone: State/Zip Code:[place] [address] Email: Financial Information Financial Class:Medicare Primary Plan Desc:MEDICARE INPATIENT Primary Plan Number:[id number] Secondary Plan Desc:HARSHINDIGO TIANA O Secondary Plan Number:[id number] Assessment Information LACE LACE Length of stay for Answers: 4-6 days current admission Acuity / Level of Answers: Yes Care: Did the patient have an inpatient admission? Comorbidities - select Answers: Chronic pulmonary disease all that apply # of Emergency department Answers: 1-2 visits in the last 6 months Score: 10 Date Signed: 12/17/2017 03:13 PM Electronically Signed By:Lulu Lee RN [facility] Initial CM Assessment Living Arrangements What is your living Answers: Alone arrangement? Who do you live with? Type Of Residence What kind of residence do Answers: House you live in? Discharge Plan Comments Coordination Status Comments Notes: Pts case discussed in tx rounds. Pt is a 77 y/o female admitted for CHF. Therapies have been ordered. OT has cleared pt to d/c home independent. Awaiting recommendations from PT. Pt reports that she is very mobile and exercises multiple times a week. Pt will most likely d/c without any needs. CM available for changes. Plan: Independent Date Signed: 12/14/2017 12:24 PM Electronically Signed By:ROBERT Edmondson [facility] Progress Note CM Note CM Note Notes: Reviewed chart, spoke with JOSE Spears, Dr. Massey and pt regarding discharge plan of care, pt's progress. Pt to have a chest x-ray today and a viral PCR sent for further evaluation and treatment. OT/PT cleared. Pt lives independently and exercises regularly, she denies needs for discharge. Anticipate pt will discharge independently when stable. Pt may need outpatient cardiac rehab. CM available for any further issues or concerns. Current Discharge Plan: Home independently Date Signed: 12/15/2017 03:37 PM Electronically Signed By:Liliane Washburn RN Case Management Discharge Plan Note Case Management Discharge Discharge Order Complete? Answers: Yes Patient to Obtain Answers: Independently Medications Discharge Comments Notes: 12/17/2017 D/C note Pt d/c independent with cardiac outpatient rehab. Transitional Care RN to follow after d/c. Pt home with baseline O2 needs. No furhter d/c needs identified. Date Signed: 12/17/2017 03:14 PM Electronically Signed By:Lulu Lee RN Intervention Information Intervention Type:*IM-Signed Date of Service:12/17/2017 12:19 PM Patient Type:Inpatient Staff Member:Letty Schneider Hours: Discipline: Severity: Comment:
--- NOTE | 2017-12-17 22:19 | GDS ---
[f rep st] DISCHARGE SUMMARY DISCHARGE DIAGNOSES: Include: 1. Acute hypoxic respiratory failure thought secondary to acute diastolic heart failure. 2. Acute diastolic heart failure. 3. Chronic obstructive pulmonary disease. 4. History of pulmonary hypertension. 5. Obstructive sleep apnea. HISTORY OF PRESENT ILLNESS: This is a 77-year-old female presenting with shortness of breath and hyp oxia. For details of patient's initial presentation, please see the History and Physical dated 12/13. CONSULTATIVE SERVICES: Include Cardiology. PROCEDURES: On 12/13/2017, patient had a transthoracic echocardiogram, which shows normal systolic L V function, EF at 64%. HOSPITAL COURSE: Acute hypoxic respiratory failure. Patient was thought to be in acute diastolic he art failure, was initiated on IV diuretics with good response. The day of disposition, she is at her baseline 6 L of supplemental oxygen. Suspected triggers: Dietary noncompliance. We did discuss th e high sodium content of pre-prepared food, which the patient has a tendency to eat in the home, part icularly for lunches. I am discharging the patient on 20 mg b.i.d. of Lasix, which is up from 20 mg daily for her normal home dose. I asked that she see Dr. Lulu Albright in clinic by the end of the week for lab check and reevaluation. I do not suspect this will be too much diuretic, as the patient has been on 40 IV b.i.d. for the last several days without any bump in her creatinine. Patient will be continued on her normal pulmonary toilet and follow in the outpatient setting with her primary ca re. PENDING STUDIES: At the time of this dictation are none. FOLLOWUP APPOINTMENTS: Include with Dr. Albright in the next 4-5 days. I spent greater than 30 minutes in the planning and coordination of this discharge. /[id number]/MODL
== END 2017-12-17 13:01 | disposition home or self-care (01) | DRG 291 ==
LOC: F2W 13:24
PROVIDERS: ADMIT Hospitalist; ATTEND Student in an Organized Health Care Education/Training Program
DX: I50.31 Acute diastolic (congestive) heart failure (principal); J96.20 Acute and chronic respiratory failure, unspecified whether with hypoxia or hypercapnia; T44.7X5A Adverse effect of beta-adrenoreceptor antagonists, initial encounter; J44.9 Chronic obstructive pulmonary disease, unspecified; I27.20 Pulmonary hypertension, unspecified; I08.1 Rheumatic disorders of both mitral and tricuspid valves; E03.9 Hypothyroidism, unspecified; R73.03 Prediabetes; E78.00 Pure hypercholesterolemia, unspecified; G47.33 Obstructive sleep apnea (adult) (pediatric); Z99.81 Dependence on supplemental oxygen
CPT/HCPCS: 97161-GP; 97165-GO; G8978-GP-CH; G8979-GP-CH; G8980-GP-CH; G8987-GO-CI; G8988-GO-CH; J1650; J1940; Q9967

== ENCOUNTER → 2018-02-22 | Outpatient (CLI) | payer OTHER | LOC: FIMAGING 14:30 | PROVIDERS: ATTEND Internal Medicine | DX: Z12.31 Encounter for screening mammogram for malignant neoplasm of breast (principal); Z85.3 Personal history of malignant neoplasm of breast ==

== ENCOUNTER 2018-12-02 12:17 | Day surgery (SDC) | payer OTHER ==
[2018-12-02] MEDS ORDERED: LR 1,000 ML IV ONE (12:37)
--- NOTE | 2018-12-02 14:12 | PDANEPAE ---
ANE Past Medical History - Cardiovascular History Hx Hypertension: Yes Hx Arrhythmias: No Hx Chest Pain: No Hx Coronary Artery / Peripheral Vascular Disease: No Hx CHF / Valvular Disease: Yes Hx Palpitations: No Cardiovascular History Comment: pulm htn. chf. ventricular tachycardia. ventricular ectopy. mitral regurgitation. hyperlipidemia. seen by [facility] and [facility], notes on chart - Pulmonary History Hx COPD: Yes Hx Asthma/Reactive Airway Disease: Yes Hx Recent Upper Respiratory Infection: No Hx Oxygen in Use at Home: Yes O2 in Use at Home (L/minute): 6L cont Hx Sleep Apnea: Yes Sleep Apnea Screening Result - Last Documented: Positive Pulmonary History Comment: isabelle positive uses cpap and o2 - Neurologic History Hx Cerebrovascular Accident: No Hx Seizures: No Hx Dementia: No - Endocrine History Hx Diabetes: Yes Endocrine History Comment: pre-diabetic. hypothyroidism - Renal History Hx Renal Disorders: No - Liver History Hx Hepatic Disorders: No - Neurological & Psychiatric Hx Hx Neurological and Psychiatric Disorders: No - Cancer History Hx Cancer: Yes Cancer History Comment: breast ca. 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 bilateral hearing aides. bruises easily. 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 right tympanoplasty with aditya . right lumpectomy. nasal surgery. cataract surgery- bilateral. t&a as child ANE Review of Systems Review of Systems: - Exercise capacity METS (RN): 3 METS ANE Patient History - Allergies Allergies/Adverse Reactions: No Known Allergies Allergy (Verified 11/22/18 15:16) - Home Medications Home medications: home medication list seen and reviewed Home Medications: Levothyroxine [Synthroid 112 mcg (*)] 07/03/16 [Last Taken 12/02/18] Alendronate Sodium [Fosamax 70 MG (*)] FR@0700 11/12/17 [Last Taken 12/02/18] Aspirin [Aspirin 81mg (*)] HS 11/12/17 [Last Taken 11/26/18] Herbals/Supplements -Info Only 11/12/17 [Last Taken 11/26/18] metFORMIN HCL [Glucophage 500 mg (*)] BIDMEAL 03/26/18 [Last Taken 12/02/18] Selexipag [Uptravi] BID 12/13/17 [Last Taken 12/02/18] Atorvastatin Calcium 11/22/18 [Last Taken 12/01/18] Furosemide [Lasix 20 MG (*)] 11/22/18 [Last Taken 12/02/18] Potassium Chloride 11/22/18 [Last Taken 12/02/18] - NPO status NPO Since - Liquids (Date): 12/02/18 NPO Since - Liquids (Time): 08:00 NPO Since - Solids (Date): 12/01/18 - Smoking Hx Smoking Status: Never smoked - Family Anes Hx Family Hx Anesthesia Complications: none ANE Labs/Vital Signs - Vital Signs Vital Signs: reviewed preoperatively; see RN documention for details Blood Pressure: 119/58 Heart Rate: 81 Respiratory Rate: 15 O2 Sat (%): 95 Height: 170.18 cm Weight: 83.915 kg ANE Physical Exam - Airway Neck exam: FROM Mallampati Score: Class 2 Mouth exam: normal dental/mouth exam - Pulmonary Pulmonary: clear to auscultation - Cardiovascular Cardiovascular: regular rate and rhythym - ASA Status ASA Status: IV ANE Anesthesia Plan Anesthesia Plan: GA with mask
[2018-12-02] MEDS ORDERED: PROPOFOL/EMULSION 500 MG/50 ML BOTTLE IV ONE (14:13)
--- NOTE | 2018-12-02 14:13 | PDGENHP ---
History & Physical Chief Complaint: iron deficiency anemia History of Present Illness: 78 year old female presents for evaluation of anemia. denies change in bms, blood in stools, abdominal pain, etc. Pertinent Past, Social, Family History: PMHx : COPD on 6l, pulm htn ,chf Relevant Physical Exam: HEENT: anicteric. CV" RRR +s1s2 + murmur. Lungs; Ronchi. Abd: soft, nt, + bs Cardiorespiratory Assessment: ASA 4
[2018-12-02] MEDS ORDERED: INDOMETHACIN 50 MG SUPP PR PRN (14:14)
[2018-12-02] MEDS ORDERED: NS 500 ML IV SCH (14:15)
--- NOTE | 2018-12-02 15:20 | GIREPORT ---
[facility] Surgical Services - Endoscopy Department Patient Name: Renae Klein Procedure Date: 12/02/2018 2:05 PM Patient Type: Outpatient Attending MD/ ER Physician: Javid Agosto MD Procedure: Upper GI endoscopy Indications: Iron deficiency anemia Patient Profile: 78 year old female presents for evaluation of iron deficiency anemia. Providers: Javid Agosto MD Medicines: Monitored Anesthesia Care Complications: No immediate complications. Estimated blood loss: Minimal. Description of Procedure: After obtaining informed consent, the endoscope was passed under direct vision. Throughout the procedure, the patient's blood pressure, pulse, and oxygen saturations were monitored continuously. The Endoscope was intro duced through the mouth, and advanced to the second part of duodenum. [facility] GI endoscopy was accomplished without difficulty. The patient tolerated th e procedure well. Findings: The examined esophagus was normal. A large hiatal hernia was present. The examined duodenum was normal. Biopsies for histology were taken wit h a cold forceps for evaluation of celiac disease. Estimated Blood Loss: Estimated blood loss was minimal. Post Op Diagnosis: - Normal esophagus. - Large hiatal hernia. - Normal examined duodenum. Biopsied. - Etiology? No obvious cause of symptoms seen. Await biopsy results. Recommendation: - Perform a colonoscopy today. - Await pathology results. - Thank you for allowing me to participate in the care of your patient. Attending Participation: I personally performed the entire procedure. Javid Agosto MD Javid Agosto MD 12/02/2018 3:19:46 PM This report has been signed electronicallyJavid Agosto MD Number of Addenda: 0 Note Initiated On: 12/02/2018 2:05 PM [email or web address]
--- NOTE | 2018-12-02 15:25 | POSTANESTH ---
Post Anesthetic Evaluation Cardiovascular Status: Normal, Stable Respiratory Status: Normal, Stable Level of Consciousness/Mental Status: Can Participate in Eval Pain Control: Adequate, Prn Tx Ordered Nausea/Vomiting Control: Adequate, Prn Tx Ordered Complications Possibly Related to Anesthesia: None Noted
--- NOTE | 2018-12-02 15:30 | GIREPORT ---
[facility] Surgical Services - Endoscopy Department Patient Name: Renae Klein Procedure Date: 12/02/2018 2:06 PM Patient Type: Outpatient Attending MD/ ER Physician: Javid Agosto MD Procedure: Colonoscopy Indications: Iron deficiency anemia Patient Profile: 78 year old female presents for evaluation of iron deficiency anemia. S he has a history of an incomplete colonoscopy due to a tortous colon in 09 05. Providers: Javid Agosto MD Medicines: Monitored Anesthesia Care Complications: No immediate complications. Estimated blood loss: None. Description of Procedure: After obtaining informed consent, the scope was passed under direct vis ion. Throughout the procedure, the patient's blood pressure, pulse, and oxyg en saturations were monitored continuously. The Colonoscope with irrigatio n channel was introduced through the anus with the intention of advancing to the cecum. The scope was advanced to the hepatic flexure before the procedure was aborted. Medications were given. The colonoscopy was technically difficult and complex due to inadequate bowel prep and significant looping. The patient was placed on her back as well as counterpressure was applied but the scope still could not be advanced i nto the ascending colon. The scope was clogged multiple times. The patient tolerated the procedure fairly well. The quality of the bowel preparati on was adequate to identify polyps 6 mm and larger in size but significant liquid stool with chunks was seen. The rectum was photographed. Findings: The perianal and digital rectal examinations were normal. Pertinent negatives include no palpable rectal lesions. A moderate amount of stool was found in the entire colon, interfering w ith visualization. Tortous colon and the scope could not be advanced into the cecum despit e counterpressure and placing the patient on her back. Estimated Blood Loss: Estimated blood loss: none. Post Op Diagnosis: - Stool in the entire examined colon. - No specimens collected. - Incomplete examination Recommendation: - Discharge patient to home (with escort). - Repeat colonoscopy versus virtual colonoscopy. - Will need extended prep. - Thank you for allowing me to participate in the care of your patient. Attending Participation: I personally performed the entire procedure. Javid Agosto MD Javid Agosto MD 12/02/2018 3:30:22 PM This report has been signed electronicallyJavid Agosto MD Number of Addenda: 0 Note Initiated On: 12/02/2018 2:06 PM Total Procedure Duration Time 0 hours 37 minutes 1 second [email or web address]
[2018-12-02 16:05] VITALS: BP 118/71
== END 2018-12-02 16:35 | disposition home or self-care (01) ==
LOC: FSGY 12:17
PROVIDERS: ATTEND Internal Medicine Gastroenterology
PROC: 0DJD8ZZ Inspection of Lower Intestinal Tract, Via Natural or Artificial Opening Endoscopic (ICD-10-PCS; principal; 2018-12-02 13:45)
PROC: 0DB98ZX Excision of Duodenum, Via Natural or Artificial Opening Endoscopic, Diagnostic (ICD-10-PCS; principal; 2018-12-02 13:45)
DX: K56.2 Volvulus (principal); K44.9 Diaphragmatic hernia without obstruction or gangrene; D50.9 Iron deficiency anemia, unspecified; I27.20 Pulmonary hypertension, unspecified; I50.9 Heart failure, unspecified; J44.9 Chronic obstructive pulmonary disease, unspecified
CPT/HCPCS: J2704

== ENCOUNTER → 2018-12-10 | Outpatient (CLI) | payer OTHER | LOC: FIMAGING 15:37 | PROVIDERS: ATTEND Internal Medicine | DX: K63.89 Other specified diseases of intestine (principal); R19.5 Other fecal abnormalities ==